=== PATIENT | female | born 1965 | race Caucasian/White ===

== ENCOUNTER 2018-07-24 15:00 | Outpatient (CLI) | payer OTHER ==
--- NOTE | 2018-07-24 15:53 | XRAY Report ---
Reason: CERVICALGIA Procedure Date: 07/24/2018 Accession Number: [id number] / [id number] Procedure: XR - Cervical Spine 2 View CPT Code: FULL RESULT: EXAM: CERVICAL SPINE RADIOGRAPHY EXAM DATE: 07/24/2018 03:23 PM. CLINICAL HISTORY: CERVICALGIA. COMPARISONS: None. TECHNIQUE: 3 views. FINDINGS: Alignment: Normal. No spondylolisthesis or scoliosis. Bones: The cervical vertebral bodies and posterior elements are well visualized from the skull base through C7-T1. There are vestigial cervical "riblets" on C7. No fractures or bone lesions. Disks: Normal. Disk heights are maintained. Facets: No degenerative disease. Soft Tissues: Normal. No prevertebral soft tissue swelling. The visualized lung apices are clear. IMPRESSION: Vestigial cervical ribs can be associated with nerve impingement. RADIA
== END 2018-07-24 15:01 | disposition home or self-care (01) ==
LOC: DI 15:00
PROVIDERS: ATTEND Nurse Practitioner Family
DX: M54.2 Cervicalgia (principal)
CPT/HCPCS: 72040

== ENCOUNTER 2019-05-20 14:09 | Outpatient (CLI) | payer OTHER ==
--- NOTE | 2019-05-20 17:59 | XRAY Report ---
Reason: PAIN IN RT KNEE Procedure Date: 05/20/2019 Accession Number: [id number] / [id number] Procedure: XRS - Knee 3 View RT CPT Code: Final Report FULL RESULT: EXAM: RIGHT KNEE RADIOGRAPHY EXAM DATE: 05/20/2019 02:22 PM. CLINICAL HISTORY: Pain in right knee. COMPARISON: None. TECHNIQUE: 3 views. FINDINGS: Bones: Normal. No fractures or bone lesions. Joints: Mild tricompartmental degenerative changes with joint space loss and osteophytosis. No effusion. No subluxations. Soft Tissues: Normal. No soft tissue swelling. IMPRESSION: 1. No acute abnormality seen in the right knee. 2. Mild tricompartmental degenerative changes. RADIA
== END 2019-05-20 14:10 | disposition home or self-care (01) ==
LOC: DI.S 14:09
PROVIDERS: ATTEND Registered Nurse
DX: M17.11 Unilateral primary osteoarthritis, right knee (principal)

== ENCOUNTER 2020-01-13 14:51 | Outpatient (CLI) | payer OTHER ==
--- NOTE | 2020-01-13 16:54 | MRI Report ---
PROCEDURE: Knee RT W/O INDICATIONS: RT KNEE PAIN TECHNIQUE: Noncontrast sagittal PD fast spin echo and T2 fast spin echo with fat saturation, sagittal 3-D gradie nt sequence with fat saturation; coronal T1 spin echo and PD fast spin echo with fat saturation, and axial PD fast spin echo with fat saturation through the knee. COMPARISON: Plain films of the right knee dated 05.20.19. FINDINGS: Image quality: Excellent. Menisci: Linear and amorphous high signal intensity within the anterior horn, body, and posterior hor n lateral meniscus is present, without definite articular surface extension. Lateral extrusion of the lateral meniscus is present which demonstrates amorphous and linear high signal intensity within its anterior horn, body, and posterior horn, demonstrating superior and inferior articular surface exten aram, indicating complex tearing. Cruciate ligaments: The anterior and posterior cruciate ligaments appear intact. Medial structures: The medial collateral ligament appears intact. Visualized portions of the pes ans erinus tendons appear normal. No abnormal bursal fluid. Lateral structures: The lateral collateral ligament, long and short heads of the biceps femoris tend on appear intact. The popliteus tendon appears normal. Iliotibial band appears normal. Anterior structures: The quadriceps and patellar tendons appear intact. Patellar alignment is osito l. No femoral trochlear dysplasia or ventral trochlear prominence. No edema in the infrapatellar fa t pad. Bones and cartilage: No bone marrow contusions or fractures. Mild tricompartmental periarticular ost eophyte formation is present. Mild articular cartilage loss diffusely overlies the weightbearing aspe cts of the medial femoral condyle and medial tibial plateau. There is a superimposed region of full-t hickness articular cartilage loss overlying the mid weightbearing aspect of the medial femoral condyl e, measuring 10 mm transverse by 10 mm anteroposterior. Moderate to severe articular cartilage loss d iffusely overlies the weightbearing aspects of the lateral femoral condyle and lateral tibial plateau . There is a 4 mm region of high-grade articular cartilage loss overlying the lateral aspect of the l ateral patellar facet. Joint space: There is a small knee joint effusion. There is a 30 mm ganglion cyst at the posterior s uperior aspect of the intercondylar notch. No Hall?s cyst. Normal appearing synovial plicae are inc identally noted. IMPRESSION: 1. Tricompartmental osteoarthritis with associated articular cartilage loss. 2. Complex tearing of the lateral meniscus. 3. Small knee joint effusion. Small ganglion cysts at the posterior superior aspect of the intercondy lar notch. Reviewed by: Jennyfer Estrella MD on 01/13/2020 4:52 PM PDT Approved by: Jennyfer Estrella MD on 01/13/2020 4:52 PM PDT Station ID: [id number]
== END 2020-01-13 14:52 | disposition home or self-care (01) ==
LOC: DI 14:51
PROVIDERS: ATTEND Physician Assistant
DX: M17.11 Unilateral primary osteoarthritis, right knee (principal); S83.281A Other tear of lateral meniscus, current injury, right knee, initial encounter; M67.461 Ganglion, right knee

== ENCOUNTER 2020-01-28 13:16 | Outpatient (CLI) | payer OTHER ==
--- NOTE | 2020-01-31 10:29 | Mammography Report ---
BILATERAL DIGITAL SCREENING MAMMOGRAM 3D/2D: 01/28/2020 CLINICAL: Routine screening. Baseline exam. No prior exams were available for comparison. There are scattered fibroglandular elements in both br easts. There is a benign lymph node in the right breast. There also is a benign calcification in the left b reast. Additionally, there are benign calcifications in the right breast. No significant masses, calcifications, or other findings are seen in either breast. IMPRESSION: BENIGN There is no mammographic evidence of malignancy. A 1 year screening mammogram is recommended. This exam was interpreted at Station ID: [id number]. NOTE: For mammograms, a report in lay terms will be sent to the patient. Approximately 15% of breast malignancies will not be visualized mammographically. In the management of a palpable breast mass, a negative mammogram must not discourage biopsy of a clinically suspicious lesion. Electronically Signed By: Fiordaliza fung/lynnette:01/28/2020 14:25:40 ACR BI-RADS Category 2: Benign Finding(s) 3342F PARENCHYMAL PATTERN: (A) - The breast(s) demonstrate(s) scattered fibroglandular densities. BI-RADS CATEGORY: (2) - 2 RECOMMENDATION: (ANNUAL) - Recommend routine annual screening mammography. [id number] 1 year screening LATERALITY: (B)
== END 2020-01-28 13:17 | disposition home or self-care (01) ==
LOC: DI 13:16
PROVIDERS: ATTEND Physician Assistant
DX: Z12.31 Encounter for screening mammogram for malignant neoplasm of breast (principal)
CPT/HCPCS: 77063; 77067

== ENCOUNTER 2020-06-06 07:49 | Day surgery (SDC) | payer OTHER ==
[2020-06-06] MEDS ORDERED: LACTATED RINGERS 1,000 ML IV ONE ×2 (07:56→09:51)
[2020-06-06 08:12] LABS: HCG UR QUAL NEGATIVE
[2020-06-06] MEDS ORDERED: MIDAZOLAM 2 MG/2 ML VIAL ONE ×4 (09:22→09:43)
[2020-06-06] MEDS ORDERED: fentaNYL 250 MCG/5 ML VIAL ONE (09:22)
[2020-06-06 09:59] VITALS: BP 121/78
== END 2020-06-06 07:50 | disposition home or self-care (01) ==
LOC: SDS 07:49
PROVIDERS: ATTEND Surgery
DX: Z12.11 Encounter for screening for malignant neoplasm of colon (principal); K57.30 Diverticulosis of large intestine without perforation or abscess without bleeding; K64.8 Other hemorrhoids; K64.4 Residual hemorrhoidal skin tags; L98.8 Other specified disorders of the skin and subcutaneous tissue; Z80.0 Family history of malignant neoplasm of digestive organs
CPT/HCPCS: 45378; 81025; J3010; J7120

== ENCOUNTER 2021-10-10 10:26 | Emergency (ER) | payer OTHER ==
[2021-10-10] MEDS ORDERED: HYDROmorphone 1 MG/ML CARPUJECT IVP STA ×2 (10:52→11:32)
[2021-10-10] MEDS ORDERED: ONDANSETRON 4 MG/2 ML VIAL IVP STA (10:52)
--- NOTE | 2021-10-10 10:53 | ED Physician Documentation ---
PD HPI HEADACHE - Stated complaint Stated Complaint: HEADACHE/NAUSEA - Chief complaint Chief Complaint: Neuro - History obtained from History obtained from: Patient - Additional information Additional information: 56-year-old woman with history of spinal fusion in the neck presents with sudden onset posterior worst headache of life with neck stiffness and nausea starting at 09 30 today. She does not have a history of headaches per se. Denies fevers. She was fine when she got up this morning. Review of Systems Ten Systems: 10 systems reviewed and negative Constitutional: denies: Fever, Chills Eyes: reports: Reviewed and negative Cardiac: reports: Reviewed and negative Respiratory: reports: Reviewed and negative PD PAST MEDICAL HISTORY - Past Medical History Cardiovascular: None Respiratory: None Endocrine/Autoimmune: None GI: None : None HEENT: None Psych: None Musculoskeletal: None Derm: None - Past Surgical History Ortho: Shoulder arthroplasty - Present Medications Home Medications: Ambulatory Orders Medication Instructions Recorded Confirmed No Known Home Medications 06/06/20 06/06/20 - Allergies Allergies/Adverse Reactions: Allergies Allergy/AdvReac Type Severity Reaction Status Date / Time No Known Drug Allergies Allergy Verified 10/10/21 10:42 PD ED PE NORMAL - Vitals Vital signs reviewed: Yes - General General: Alert and oriented X 3, Other (She appears uncomfortable with mild meningismus) - HEENT HEENT: PERRL, EOMI - Neck Neck: No bony TTP - Cardiac Cardiac: RRR, No murmur - Respiratory Respiratory: No respiratory distress, Clear bilaterally - Abdomen Abdomen: Normal bowel sounds, Soft, Non tender - Back Back: No CVA TTP, No spinal TTP - Derm Derm: Normal color, Warm and dry - Extremities Extremities: No edema, No calf tenderness / cord - Neuro Neuro: Alert and oriented X 3, No motor deficit, No sensory deficit, Normal speech Eye Opening: Spontaneous Motor: Obeys Commands Verbal: Oriented GCS Score: 15 Results - Vitals Vitals: Vital Signs - 24 hr 10/10/21 10/10/21 10:39 11:08 Temperature 37.1 C Heart Rate 74 68 Respiratory 20 15 Rate Blood Pressure 156/100 H 174/86 H O2 Saturation 100 99 Oxygen O2 Source Room air - Labs Labs: Laboratory Tests 10/10/21 10/10/21 10/10/21 10:59 10:59 10:59 WBC 6.1 RBC 4.33 Hgb 13.2 Hct 38.9 MCV 89.8 MCH 30.5 MCHC 33.9 RDW 13.5 Plt Count 230 MPV 10.4 Neut # (Auto) 3.7 Lymph # (Auto) 1.7 Larue # (Auto) 0.5 Eos # (Auto) 0.2 Baso # (Auto) 0.1 Absolute Nucleated RBC 0.00 Nucleated RBC % 0.0 PT 10.6 INR 1.0 Sodium 138 Potassium 3.4 L Chloride 104 Carbon Dioxide 20 L Anion Gap 14.0 H BUN 15 Creatinine 0.9 Estimated GFR (MDRD) 65 L Glucose 119 H Calcium 9.8 PD MEDICAL DECISION MAKING - ED course ED course: 56-year-old woman presents with a history very consistent with an acute subarachnoid hemorrhage subsequently confirmed on CT showing hyperdense subarach noid hemorrhage filling the basilar cisterns. A second IV was placed and she was medicated with Dilaudid and Zofran for pain and a Cardene drip was started with blood pressure goal of normotension. [facility] was consulted and she was accepted by Dr. Segundo Sahu at 11:20 AM and cobras are completed. She will be flown to [facility] given the diagnosis. IMPRESSION: 1.Acute hyperdense subarachnoid hemorrhage filling the basilar cisterns. Findings are suspicious for underlying intracranial aneurysm rupture. CT angiogram is recommended for further evaluation. No intraparenchymal hemorrhage is seen. 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 - Critical Care Time(min): 45 Time Includes: Direct patient care, Review records, Reassess patient, Document care, Coordinate care, Medical consult, Family consult for tx dec Data interpretation: Labs, Pulse ox Departure - Departure Disposition: 02 Transfer Acute Care Hosp Clinical Impression: Subarachnoid bleed Condition: Critical
[2021-10-10 11:04] LABS: BASOPHILS # (AUTO) 0.1 10^3/uL (0.0-0.1); BASOPHILS % (AUTO) 0.8 %; EOSINOPHILS # (AUTO) 0.2 10^3/uL (0.0-0.7); EOSINOPHILS % (AUTO) 3.1 %; HCT - HEMATOCRIT 38.9 % (37.0-47.0); HGB - HEMOGLOBIN 13.2 g/dL (12.0-16.0); LYMPHOCYTES # (AUTO) 1.7 10^3/uL (1.5-3.5); LYMPHOCYTES % (AUTO) 27.5 %; MEAN CORPUSCULAR HEMOGLOBIN 30.5 pg (27.0-31.0); MEAN CORPUSCULAR HGB CONC 33.9 g/dL (32.0-36.0); MEAN CORPUSCULAR VOLUME 89.8 fL (81.0-99.0); MEAN PLATELET VOLUME 10.4 fL (7.9-10.8); MONOCYTES # (AUTO) 0.5 10^3/uL (0.0-1.0); MONOCYTES % (AUTO) 8.5 %; NEUTROPHILS # (AUTO) 3.7 10^3/uL (1.5-6.6); NEUTROPHILS % (AUTO) 59.9 %; PLT - PLATELET COUNT 230 10^3/uL (130-450); RED BLOOD COUNT 4.33 10^6/uL (4.20-5.40); RED CELL DISTRIBUTION WIDTH 13.5 % (12.0-15.0); WHITE BLOOD COUNT 6.1 x10^3/uL (4.8-10.8)
[2021-10-10] MEDS ORDERED: NICARDIPINE HCL 25 MG in SODIUM CHLORIDE 0.9% 240 ML IV STA (11:07)
[2021-10-10 11:13] LABS: PT - PROTHROMBIN TIME 10.6 secs (9.9-12.6)
[2021-10-10 11:15] LABS: CALCIUM 9.8 mg/dL (8.5-10.3); CREATININE 0.9 mg/dL (0.4-1.0); POTASSIUM 3.4 mmol/L (3.5-5.0)
--- NOTE | 2021-10-10 11:18 | CT Report ---
PROCEDURE: HEAD WO INDICATIONS: WHOL worst headache of life TECHNIQUE: Noncontrast 4.5 mm thick angled axial sections acquired from the foramen magnum to the vertex. For r adiation dose reduction, the following was used: automated exposure control, adjustment of mA and/or kV according to patient size. COMPARISON: None. FINDINGS: Image quality: Excellent. CSF spaces: There is mild fractures seen within the suprasellar cistern extending into the ambient a nd interpeduncular cisterns and the prepontine cistern. Blood products are also seen extending into t he right greater than left sylvian fissure and in the posterior parafalcine area where there is inter digitation between multiple cerebral sulci. No intraparenchymal hemorrhage is seen. No intraventricul ar blood products are identified. Brain: No midline shift. No mass effect or acute intraparenchymal hemorrhage. Low-lying cerebellar t onsils are noted with crowding of the foramen magnum, which is partially obscured by beam hardening a rtifact. Martinez-white matter interface is preserved. Skull and face: Calvarium and visualized facial bones are intact, without suspicious lesions. Sinuses: Visualized sinuses and mastoids are clear. IMPRESSION: 1.Acute hyperdense subarachnoid hemorrhage filling the basilar cisterns. Findings are suspicious for underlying intracranial aneurysm rupture. CT angiogram is recommended for further evaluation. No intr aparenchymal hemorrhage is seen. 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 The Emergency Department physician reviewed the images at the time of the scan and is aware of the kraus barachnoid hemorrhage. Reviewed by: Leiv Ruiz MD on 10/10/2021 11:17 AM PDT Approved by: Levi Ruiz MD on 10/10/2021 11:17 AM PDT Station ID: [id number]
[2021-10-10 11:44] VITALS: BP 149/78
== END 2021-10-10 12:17 | disposition short-term general hospital (02) ==
LOC: ED 10:26
DX: I60.9 Nontraumatic subarachnoid hemorrhage, unspecified (principal); Z20.822 Contact with and (suspected) exposure to COVID-19
CPT/HCPCS: 36415; 70450; 80048; 85025; 85610; 87635; 96374; 96375; 99291; J1170